=== PATIENT | female | born 1965 | race Caucasian/White ===

== ENCOUNTER 2016-11-27 17:20 | Outpatient (CLI) | payer OTHER | END 2016-11-27 23:00 | LOC: LAB SRH 17:20 | DX: E03.9 Hypothyroidism, unspecified (principal) | CPT/HCPCS: 90074; 90648; 91023; 93140 ==

== ENCOUNTER 2016-12-01 13:40 | Outpatient (CLI) | payer OTHER | END 2016-12-01 23:00 | LOC: LAB SRH 13:40 | DX: E03.9 Hypothyroidism, unspecified (principal) | CPT/HCPCS: 90074; 93075 ==